=== PATIENT | male | born 2000 | race African-American/Black ===

== ENCOUNTER 2024-06-15 11:53 | Emergency (ER) | payer OTHER, SELFPAY ==
[2024-06-15 11:54] VITALS: BP 169/113; PULSE 98; RESP 15; TEMP 36.5; O2SAT 98
--- NOTE | 2024-06-15 12:04 | ED.VIS.LOWEX ---
HPI History of Present Illness Chief Complaint: Lower Extremity Injury Informant: patient Narrative Narrative: Inversion injury right ankle half hour prior to arrival. Works at [email or web address]. Playing basketball with the kids when injury occurred. No other injuries no history of fractures no medications taken. No allergies. Prior similar symptoms: No PFSH PFSH Home Medications ?Medication ?Instructions ?Recorded ?Last Taken ?Type ibuprofen 600 mg tablet 600 mg PO Q6H PRN PRN pain #20 06/15/24 Unknown Rx TABLETS Allergy/AdvReac Type Severity Reaction Status Date / Time No Known Allergies Allergy Verified 06/15/24 11:57 Social History Smoking Status: Never smoker ROS ROS ED Constitutional Constitutional ED: Denies fever(s) Gastrointestinal Gastrointestinal: Denies diarrhea, nausea or vomiting Musculoskeletal Musculoskeletal: Reports extremity pain; Denies back pain or neck pain Integumentary Denies rash or wounds EXAM Physical Exam Const Vital Signs: 06/15/24 11:54 Temperature 97.7 F L Temperature Source Temporal Pulse Rate 98 Respiratory Rate 15 Blood Pressure 169/113 H Blood Pressure Mean 131 Pulse Ox 98 Oxygen Delivery Method Room Air Positive well nourished and well developed General Appearance ED: well developed and NAD HEENT Reports moist mucous membranes normocephalic and atraumatic Eyes General Eye ED: Yes normal appearance of both eyes Neck full ROM Chest Wall Chest: Negative for tenderness Resp normal respiratory effort and normal air movement Effort and Inspection: symmetric chest movement; Negative for respiratory distress Cardio regular rate, regular rhythm and no murmurs Peripheral Pulses: pulses 2+ throughout GI normal to inspection, nondistended, normoactive bowel sounds and non-tender Palpation: Negative for guarding or rebound tenderness present Extremity Extremity Narrative: Right lower extremity no hip or knee tenderness. Swelling lateral ankle with tenderness malleolus ATFL minimal tenderness medial malleolus no clear deformities. No midfoot or proximal fifth base tenderness. Skin intact. General Extremety ED: Yes edema and tenderness General Extremity: edema Neuro oriented x3 and no sensory deficits noted Sensorium / Orientation: awake and alert Skin no rashes or lesions noted and no wounds MDM MDM MDM Narrative Medical decision making narrative: Interventions / MDM: Differential diagnosis: Ankle sprain Diagnosis considered but do not suspect: Fracture however x-ray negative My EKG interpretation: N/A Imaging independently reviewed and interpreted by myself: Three-view x-ray right ankle: No fracture or dislocation normal mortise. Soft tissue swelling laterally. External documents reviewed: N/A Test considered but not ordered:N/A ED course: Ice was placed Motrin ordered. X-ray right ankle for further evaluation. X-ray negative. Jaciel wrap Aircast provided. He has crutches. Appropriate work restrictions given. Outpatient follow-up with occupational health. Re-evaluation: stable Disposition discussed with patient/family/significant other: Patient Case discussed with consulting clinician: N/A This note was generated with [employer] software. It may contain incorrect words, spelling, and punctuation that were not noted in checking the note before signing. Radiography Diagnostic Testing: Clinical Impression(s) from Imaging Studies Ankle X-Ray 06/15/24 12:11 IMPRESSION: No acute fracture or dislocation. Moderate soft tissue swelling. [facility] T[facility] Chief Complaint: Lower Extremity Injury ED Provider: Fam Silva Dx/Rx/DC Orders Clinical Impression: Right ankle sprain, Injury of right ankle, Work related injury Instructions: ED Ankle Sprain (Adult) Prescriptions: New ibuprofen 600 mg tablet 600 mg PO Q6H PRN PRN (Reason: pain) Qty: 20 0RF Primary Care Provider: Care Physician,Jane Primary Referrals: Diane Goodman, [Non-Staff] - Activity Restrictions/Additional Instructions: X-ray negative for fracture. Maintain Jaciel wrap Aircast crutches, may weight-bear as tolerated. Continue Motrin. Work restrictions as given. Follow-up with occupational health reevaluation clearance back to activities at work. Print Language: Sami Disposition Disposition: Home, Self Care
--- NOTE | 2024-06-15 12:11 | RAD_ITS ---
PROCEDURE: ANKLE MIN 3 VIEWS 06/15/2024 REASON FOR EXAM: INJURY TECHNIQUE: 3 views of the right ankle COMPARISON: None FINDINGS: No acute fracture or dislocation. Ankle mortise is maintained. Moderate soft tissue swelling most prominent of the lateral malleolus. RAD/Ankle min 3 Views IMPRESSION: No acute fracture or dislocation. Moderate soft tissue swelling. Reading Location: [facility]
[2024-06-15] MEDS: Ibuprofen 600 MG Tablet PO (12:14)
[2024-06-15 13:08] VITALS: BP 146/99; PULSE 91; RESP 16; TEMP 36.6; O2SAT 99
== END 2024-06-15 13:08 | disposition home or self-care (01) ==
PROVIDERS: Emergency Provider Emergency Medicine; Referring Provider Emergency Medicine; Visit Provider Emergency Medicine
DX: S93.401A Sprain of unspecified ligament of right ankle, initial encounter (principal); X50.9XXA Other and unspecified overexertion or strenuous movements or postures, initial encounter; Y93.67 Activity, basketball; Y99.0 Civilian activity done for income or pay; Y92.89 Other specified places as the place of occurrence of the external cause
CPT/HCPCS: 73610; 99283